=== PATIENT | male | born 1970 | race Caucasian/White ===

== ENCOUNTER → 2022-02-05 | Day surgery (SDC) | payer BC ==
[~2022-02-05] MED LIST: Propofol 200 MG/20 ML SDV ONE
[2022-02-05] MEDS: Lactated Ringers 1,000 ML IV SCH (13:19)
[2022-02-05 16:55] VITALS: BP 110/75; PULSE 82
== END ==
LOC: CC.SDS 12:08
PROVIDERS: ATTEND Family Medicine
DX: Z12.11 Encounter for screening for malignant neoplasm of colon (principal); D12.3 Benign neoplasm of transverse colon; D12.4 Benign neoplasm of descending colon; D12.8 Benign neoplasm of rectum; K57.30 Diverticulosis of large intestine without perforation or abscess without bleeding; I10 Essential (primary) hypertension; E66.01 Morbid (severe) obesity due to excess calories; D22.9 Melanocytic nevi, unspecified; N43.3 Hydrocele, unspecified; F17.210 Nicotine dependence, cigarettes, uncomplicated; Z98.890 Other specified postprocedural states; Z68.41 Body mass index [BMI] 40.0-44.9, adult; Z79.899 Other long term (current) drug therapy
CPT/HCPCS: 00812; J2704; J7120

== ENCOUNTER → 2022-02-11 | Day surgery (SDC) | payer BC ==
[~2022-02-11] MED LIST changes: +Dexamethasone 4 MG/ML SDV ONE; +Lactated Ringers 1,000 ML IV SCH; +Lidocaine 2% 20 ML MDV ONE; +Midazolam 1 MG/ML 2 ML SDV ONE; +Morphine 4 MG/ML VIAL ONE; +ceFAZolin 1 GM Vial IVPUSH ONE; +fentaNYL 50 MCG/ML SDV ONE
[2022-02-11 16:04] VITALS: BP 132/85; PULSE 95
== END ==
LOC: CC.SDS 11:56
PROVIDERS: ATTEND Surgery
DX: N43.3 Hydrocele, unspecified (principal); F17.210 Nicotine dependence, cigarettes, uncomplicated; I10 Essential (primary) hypertension; E66.01 Morbid (severe) obesity due to excess calories; D22.9 Melanocytic nevi, unspecified; Z79.899 Other long term (current) drug therapy; Z98.890 Other specified postprocedural states; Z68.41 Body mass index [BMI] 40.0-44.9, adult
CPT/HCPCS: 00920; J0690; J1100; J2250; J2270; J2704; J3010; J7120

== ENCOUNTER → 2023-07-14 | Day surgery (SDC) | payer BC ==
[~2023-07-14] MED LIST changes: +Lidocaine 1% with EPINEPHrine 1:100,000 20 ML MDV INJECT ONE; +Metoclopramide 10 MG/2 ML SDV ONE; -Morphine 4 MG/ML VIAL ONE; +Ondansetron 4 MG/2 ML SDV ONE; -ceFAZolin 1 GM Vial IVPUSH ONE
[2023-07-14 13:01] VITALS: BP 128/63; PULSE 98
== END ==
LOC: CC.SDS 08:01
PROVIDERS: ATTEND Surgery
DX: K42.9 Umbilical hernia without obstruction or gangrene (principal); I10 Essential (primary) hypertension; E66.01 Morbid (severe) obesity due to excess calories; Z68.32 Body mass index [BMI] 32.0-32.9, adult; Z79.899 Other long term (current) drug therapy; Z72.0 Tobacco use
CPT/HCPCS: 49591; J1100; J2250; J2405; J2704; J2765; J3010; J7120; 00752; J3490

== ENCOUNTER 2024-01-28 10:35 | Inpatient (IN) | payer BC ==
[2024-01-28 10:59] LABS: BASOPHILS ABSOLUTE AUTO 0.06 10^3/uL (0.00-0.50); BASOPHILS PERCENT AUTO 0.6 % (0-1); EOSINOPHILS ABSOLUTE AUTO 0.11 10^3/uL (0.00-1.50); EOSINOPHILS PERCENT AUTO 1.2 % (0-6); HEMATOCRIT 48.4 % (42.0-52.0); HEMOGLOBIN 16.6 g/dL (14.0-18.0); IMMATURE GRAN ABSOLUTE AUTO 0.05 10^3/uL (0.00-0.49); IMMATURE GRAN PERCENT AUTO 0.5 % (0.0-4.9); LYMPHOCYTES ABSOLUTE AUTO 1.39 10^3/uL (0.60-5.00); LYMPHOCYTES PERCENT AUTO 14.8 % (24-44); MEAN CORPUSCULAR HEMOGLOBIN 33.8 pg (27.0-32.0); MEAN CORPUSCULAR HGB CONC 34.3 g/dL (32.0-36.0); MEAN CORPUSCULAR VOLUME 98.6 fL (83.0-97.0); MONOCYTES ABSOLUTE AUTO 0.89 10^3/uL (0.00-1.50); MONOCYTES PERCENT AUTO 9.5 % (0-10); NEUTROPHILS PERCENT AUTO 73.4 % (41-71); PLATELET COUNT,PLT 203 10^3/uL (150-400); RED BLOOD CELL COUNT 4.91 x10^6/uL (4.50-6.00); WHITE BLOOD CELL COUNT,WBC 9.4 10^3/uL (4.0-11.0)
[2024-01-28] MEDS: Sodium Chloride 0.9% 1,000 ML IV ONE (11:01)
[2024-01-28 11:14] LABS: BILIRUBIN TOTAL 0.7 mg/dL (0.0-1.0); C-REACTIVE PROTEIN 1.65 mg/dL (<=0.50); CALCIUM 9.2 mg/dL (8.4-10.1); EST CRCL DRUG DOSING (CG) 21.9 mL/min; MAGNESIUM 2.2 mg/dL (1.8-2.4); POTASSIUM,K 4.3 mEq/L (3.5-5.0); PROTEIN TOTAL,TP 8.3 g/dL (6.4-8.2)
[2024-01-28 11:16] LABS: CREATININE 3.9 mg/dL (0.7-1.3)
[2024-01-28] MEDS ORDERED: Acetaminophen 325 MG Tab PO PRN (12:28)
[2024-01-28] MEDS ORDERED: Ondansetron 4 MG/2 ML SDV IV PRN (12:28)
[2024-01-28] MEDS ORDERED: Docusate Sodium 100 MG Cap PO PRN (12:28)
[2024-01-28] MEDS ORDERED: Ondansetron 4 MG Tab.DIS PO PRN (12:28)
[2024-01-28] MEDS: Sodium Chloride 0.9% 1,000 ML IV SCH ×2 (13:00→14:05)
[2024-01-28 13:20] LABS: APPEARANCE,URINE CLEAR (CLEAR); BILIRUBIN,URINE NEGATIVE (NEGATIVE); COLOR,URINE YELLOW (YELLOW); GLUCOSE,URINE NEGATIVE (NEGATIVE); KETONES,URINE NEGATIVE (NEGATIVE); LEUKOCYTE ESTERASE,URINE NEGATIVE (NEGATIVE); NITRITE,URINE NEGATIVE (NEGATIVE); OCCULT BLOOD,URINE NEGATIVE (NEGATIVE); PH,URINE 5.5 (4.5-8.0); PROTEIN,URINE 30 mg/dL (NEGATIVE); UROBILINOGEN,URINE 0.2 EU/dL (0.2-1.0)
[2024-01-28 13:33] LABS: BACTERIA,URINE NOT SEEN /HPF (NOT SEEN); RBC,URINE 0-5 /HPF (0-5); SQUAMOUS EPITHELIAL CELLS,UR MODERATE /HPF (NOT SEEN); WBC,URINE 0-5 /HPF (0-5)
[2024-01-28] MEDS: Enoxaparin 30 MG/0.3 ML Syringe SUBCUT SCH (19:43)
[2024-01-29 07:32] LABS: BASOPHILS ABSOLUTE AUTO 0.04 10^3/uL (0.00-0.50); BASOPHILS PERCENT AUTO 0.7 % (0-1); EOSINOPHILS ABSOLUTE AUTO 0.16 10^3/uL (0.00-1.50); EOSINOPHILS PERCENT AUTO 2.8 % (0-6); HEMATOCRIT 43.1 % (42.0-52.0); HEMOGLOBIN 14.5 g/dL (14.0-18.0); IMMATURE GRAN ABSOLUTE AUTO 0.03 10^3/uL (0.00-0.49); IMMATURE GRAN PERCENT AUTO 0.5 % (0.0-4.9); LYMPHOCYTES ABSOLUTE AUTO 1.33 10^3/uL (0.60-5.00); LYMPHOCYTES PERCENT AUTO 23.1 % (24-44); MEAN CORPUSCULAR HEMOGLOBIN 33.8 pg (27.0-32.0); MEAN CORPUSCULAR HGB CONC 33.6 g/dL (32.0-36.0); MEAN CORPUSCULAR VOLUME 100.5 fL (83.0-97.0); MONOCYTES PERCENT AUTO 8.7 % (0-10); NEUTROPHILS ABSOLUTE AUTO 3.71 x10^3/uL (1.80-8.00); NEUTROPHILS PERCENT AUTO 64.2 % (41-71); PLATELET COUNT,PLT 169 10^3/uL (150-400); RED BLOOD CELL COUNT 4.29 x10^6/uL (4.50-6.00); WHITE BLOOD CELL COUNT,WBC 5.8 10^3/uL (4.0-11.0)
[2024-01-29] MEDS: Lisinopril 20 MG Tab PO SCH (07:36)
[2024-01-29] MEDS: Nicotine 21 MG/24 Hr Patch TRDERM SCH (07:42)
[2024-01-29 08:03] LABS: ALBUMIN 3.1 g/dL (3.4-5.0); BILIRUBIN TOTAL 0.7 mg/dL (0.0-1.0); C-REACTIVE PROTEIN 0.87 mg/dL (<=0.50); CREATININE 0.9 mg/dL (0.7-1.3); EST CRCL DRUG DOSING (CG) 94.92 mL/min; POTASSIUM,K 4.4 mEq/L (3.5-5.0); PROTEIN TOTAL,TP 6.7 g/dL (6.4-8.2)
[2024-01-29 08:10] LABS: CALCIUM 7.8 mg/dL (8.4-10.1)
[2024-01-29 09:17] VITALS: BP 121/67; PULSE 86
== END 2024-01-29 09:15 | disposition home or self-care (01) | DRG 426 ==
LOC: CC.ED 10:35 → UNDOADMIN 11:25 → CC.MS 11:25 → UNDODISIN 01-29 09:15
PROVIDERS: ADMIT Nurse Practitioner Family; ATTEND Nurse Practitioner Family
DX: E87.1 Hypo-osmolality and hyponatremia (principal); N17.9 Acute kidney failure, unspecified; I10 Essential (primary) hypertension; E86.0 Dehydration; T67.5XXA Heat exhaustion, unspecified, initial encounter; R25.2 Cramp and spasm; Z79.899 Other long term (current) drug therapy
CPT/HCPCS: 36415; 71046; 80053; 81001; 83735; 84484; 85025; 86140; 93005; 93010; 96360; 99223; 99238; 99285-25; J1650; J7030

== ENCOUNTER 2024-05-06 19:34 | Emergency (ER) | payer BC ==
[2024-05-06 19:36] VITALS: BP 125/88; PULSE 103
[2024-05-06] MEDS: Diphtheria,Pertussis(Acell),Tetanus Vaccine 0.5 ML Syringe IM ONE (21:25)
== END 2024-05-06 21:37 | disposition left against medical advice (07) ==
LOC: CC.ED 19:34
DX: S06.0X9A Concussion with loss of consciousness of unspecified duration, initial encounter (principal); Z86.73 Personal history of transient ischemic attack (TIA), and cerebral infarction without residual deficits; I25.10 Atherosclerotic heart disease of native coronary artery without angina pectoris; I10 Essential (primary) hypertension; Z72.0 Tobacco use; W19.XXXA Unspecified fall, initial encounter
CPT/HCPCS: 12001; 70450; 90471; 90715; 99283; 99284-25